=== PATIENT | female | born 1995 | race Caucasian/White ===

== ENCOUNTER 2019-01-07 12:30 | Observation (INO) | payer OTHER, MEDICAID ==
[~2019-01-07] VITALS: Ht 160 cm; Wt 96.6 kg
== END 2019-01-07 17:15 | disposition home or self-care (01) ==
LOC: INTOOBSV 12:30 → SPU 12:30
PROVIDERS: ADMIT Specialist; ATTEND Specialist
DX: O26.893 Other specified pregnancy related conditions, third trimester (principal); R10.30 Lower abdominal pain, unspecified; M54.9 Dorsalgia, unspecified; Z3A.39 39 weeks gestation of pregnancy
CPT/HCPCS: G0378

== ENCOUNTER 2019-01-09 15:00 | Inpatient (IN) | payer OTHER, MEDICAID ==
[~2019-01-09] VITALS: Ht 160 cm; Wt 97.1 kg
[2019-01-09] MEDS ORDERED: LR 1,000 ML IV ONE (15:37)
[2019-01-09] MEDS ORDERED: OXYTOCIN/0.9 % SODIUM CHLORIDE 1,000 ML IV SCH (15:37)
[2019-01-09] MEDS ORDERED: LR 1,000 ML IV SCH (15:37)
[2019-01-09] MEDS ORDERED: TERBUTALINE SULFATE 1 MG/ML VIAL SUBCUT ONE (15:45)
[2019-01-09 16:24] LABS: HEMATOCRIT 30.8 % (36-48); HEMOGLOBIN 10.2 g/dL (12.0-16.0); MEAN CORPUSCULAR HEMOGLOBIN 27 pg (27-31); MEAN CORPUSCULAR HGB CONC 33 % (32-36); MEAN CORPUSCULAR VOLUME 81 fL (79.0-98.0); PLATELET COUNT (AUTO) 280 K/uL (130-430); RED BLOOD CELL COUNT(AUTO) 3.81 MIL/uL (4.2-6.2); RED CELL DISTRIBUTION WIDTH 15.2 % (9.0-15.0); WHITE BLOOD COUNT (AUTO) 10.6 K/uL (4.8-10.8)
[2019-01-09 16:25] LABS: BASOPHILS # (AUTO) 0.1 K/uL (0.0-0.2); BASOPHILS % (AUTO) 0.5 % (0.0-2.0); EOSINOPHILS # (AUTO) 0.2 K/uL (0.0-0.4); EOSINOPHILS % (AUTO) 1.5 % (0.0-4.0); LYMPHOCYTES % (AUTO) 18.7 % (20.5-51.5); MONOCYTES # (AUTO) 0.8 K/uL (0.0-1.0); MONOCYTES % (AUTO) 7.4 % (1.7-9.3); NEUTROPHILS # (AUTO) 7.6 K/uL (1.8-7.7); NEUTROPHILS % (AUTO) 71.9 % (40.0-70.0)
[2019-01-09] MEDS ORDERED: OXYTOCIN/0.9 % SODIUM CHLORIDE 1,000 ML IV ONE (16:42)
[2019-01-09] MEDS: NALBUPHINE HCL 10 MG/ML AMP IVP PRN (21:04)
[2019-01-09 21:36] VITALS: BP_SYST 123
[2019-01-10] MEDS ORDERED: fentaNYL CITRATE/PF 100 MCG/2 ML AMP ONE ×4 (00:43→19:40)
[2019-01-10] MEDS ORDERED: ROPIVACAINE 0.2% 100 ML ONE ×3 (00:43→14:04)
[2019-01-10] MEDS ORDERED: LR 500 ML IV ONE (10:31)
[2019-01-10] MEDS ORDERED: FENT2mCg/mL-ROPIVA0.2%/NS EPID 100 ML EP SCH (10:45)
[2019-01-10] MEDS: NALBUPHINE HCL 10 MG/ML AMP IVP PRN (17:20)
[2019-01-10] MEDS ORDERED: LR 1,000 ML IV ONE (17:52)
[2019-01-10] MEDS ORDERED: CEFAZOLIN 2 GM IVPB PREMIX 50 ML IV ONE (18:00)
[2019-01-10] MEDS ORDERED: DIPHENHYDRAMINE INJ 50 MG/ML VIAL IVP PRN (19:15)
[2019-01-10] MEDS ORDERED: KETOROLAC TROMETHAMINE 60 MG/2 ML VIAL IM PRN (19:15)
[2019-01-10] MEDS ORDERED: fentaNYL CITRATE/PF 100 MCG/2 ML AMP IVP PRN ×2 (19:15)
[2019-01-10] MEDS ORDERED: NALBUPHINE HCL 10 MG/ML AMP IVP PRN (19:15)
[2019-01-10] MEDS ORDERED: ONDANSETRON HCL 4 MG/2 ML VIAL IVP PRN (19:15)
[2019-01-10] MEDS ORDERED: NALOXONE HCL 0.4 MG/ML AMP (NARCAN) IVP PRN ×2 (19:15)
[2019-01-10] MEDS ORDERED: MORPHINE SULFATE 10MG/10ML PF AMP EP SCH (19:15)
[2019-01-10 19:17] VITALS: BP_SYST 134
[2019-01-10] MEDS ORDERED: LR 1,000 ML IV SCH (19:22)
[2019-01-10] MEDS ORDERED: OXYTOCIN/0.9 % SODIUM CHLORIDE 1,000 ML IV ONE (19:22)
[2019-01-10] MEDS ORDERED: OXYCODONE/ACETAMINOPHEN 5-325 TABLET PO PRN (19:30)
[2019-01-10] MEDS ORDERED: BISACODYL 10 MG/SUPPOSITORY RC PRN (19:30)
[2019-01-10] MEDS ORDERED: MEASLES,MUMPS&RUBELLA VACC/PF 12500 UNIT/0.5 ML VIAL SUBQ PRN (19:30)
[2019-01-10] MEDS ORDERED: HYDROcodone/ACETAMIN 5-325 MG TAB (NORCO/ VICODIN) PO PRN (19:30)
[2019-01-10] MEDS ORDERED: LANOLIN 7 GM OINT. TP PRN (19:30)
[2019-01-10] MEDS ORDERED: SENNOSIDES/DOCUSATE SODIUM 1 TAB TABLET(SENOKOT-S) PO PRN (19:30)
[2019-01-10] MEDS ORDERED: RHO(D) IMMUNE GLOBULIN/MALTOSE 1500 UNITS/1.3 ML (WINHRO) IM PRN (19:30)
[2019-01-10] MEDS ORDERED: ANUSOL 1 EA SUPP.RECT (PREPARATION H) RC PRN (19:30)
[2019-01-10] MEDS ORDERED: TEMAZEPAM 15 MG CAPSULE PO PRN (21:00)
[2019-01-11] MEDS ORDERED: CEFAZOLIN 1 GM IVPB PREMIX 50 ML IV SCH
[2019-01-11 08:40] LABS: HEMATOCRIT 27.2 % (36-48); HEMOGLOBIN 8.9 g/dL (12.0-16.0); MEAN CORPUSCULAR HEMOGLOBIN 26 pg (27-31); MEAN CORPUSCULAR HGB CONC 33 % (32-36); MEAN CORPUSCULAR VOLUME 81 fL (79.0-98.0); PLATELET COUNT (AUTO) 231 K/uL (130-430); RED BLOOD CELL COUNT(AUTO) 3.38 MIL/uL (4.2-6.2); RED CELL DISTRIBUTION WIDTH 15.4 % (9.0-15.0)
[2019-01-11 08:41] LABS: BASOPHILS % (AUTO) 0.2 % (0.0-2.0); EOSINOPHILS # (AUTO) 0.1 K/uL (0.0-0.4); EOSINOPHILS % (AUTO) 0.6 % (0.0-4.0); LYMPHOCYTES # (AUTO) 1.8 K/uL (1.0-5.5); LYMPHOCYTES % (AUTO) 12.2 % (20.5-51.5); MONOCYTES # (AUTO) 0.9 K/uL (0.0-1.0); NEUTROPHILS # (AUTO) 12.3 K/uL (1.8-7.7)
[2019-01-11 08:42] LABS: WHITE BLOOD COUNT (AUTO) 15.2 K/uL (4.8-10.8)
[2019-01-11] MEDS: IBUPROFEN 600 MG TABLET PO SCH ×2 (10:55→12:40)
[2019-01-11] MEDS: SIMETHICONE 80 MG TAB.CHEW PO PRN (10:58)
[2019-01-11] MEDS: OXYCODONE/ACETAMINOPHEN 5-325 TABLET PO PRN ×2 (18:25→23:10)
[2019-01-11] MEDS: DOCUSATE SODIUM 100 MG CAPSULE PO PRN ×2 (18:27→23:10)
[2019-01-12] MEDS ORDERED: ACETAMINOPHEN 500 MG TABLET PO ONE ×2 (00:30→00:45)
[2019-01-12] MEDS ORDERED: ACETAMINOPHEN 500 MG TABLET ONE (00:31)
[2019-01-12] MEDS ORDERED: MIDAZOLAM HCL 5 MG/5 ML VIAL IVP ONE (00:50)
[2019-01-12] MEDS ORDERED: PROPOFOL 200MG/ 20ML VIAL (DIPRIVAN) IV ONE (00:50)
[2019-01-12] MEDS ORDERED: LR 1,000 ML IV.SOLN IV ONE (00:50)
[2019-01-12] MEDS: IBUPROFEN 600 MG TABLET PO SCH ×4 (05:35→18:05)
[2019-01-12] MEDS: DOCUSATE SODIUM 100 MG CAPSULE PO PRN (09:39)
[2019-01-12] MEDS: SIMETHICONE 80 MG TAB.CHEW PO PRN (09:40)
[2019-01-13] MEDS: SIMETHICONE 80 MG TAB.CHEW PO PRN ×2 (00:40→06:30)
[2019-01-13] MEDS: IBUPROFEN 600 MG TABLET PO SCH ×3 (00:40→12:17)
[2019-01-13] MEDS ORDERED: MORPHINE SULFATE 10MG/10ML PF AMP EP ONE (00:50)
[2019-01-13] MEDS ORDERED: fentaNYL CITRATE/PF 100 MCG/2 ML AMP IVP ONE (00:50)
== END 2019-01-13 13:05 | disposition home or self-care (01) | DRG 788 ==
LOC: SPU 15:00
PROVIDERS: ADMIT Specialist; ATTEND Specialist
PROC: 3E0R3BZ Introduction of Anesthetic Agent into Spinal Canal, Percutaneous Approach (ICD-10-PCS; 2019-01-10)
PROC: 10D00Z1 Extraction of Products of Conception, Low, Open Approach (ICD-10-PCS; principal; 2019-01-10 18:00)
DX: O33.9 Maternal care for disproportion, unspecified (principal); O62.2 Other uterine inertia; Z37.0 Single live birth; Z3A.39 39 weeks gestation of pregnancy
CPT/HCPCS: 36415; 85025; 86886; 86900; 86901; 94760; J0690; J2250; J2274; J2300; J2590; J2704; J2795; J3010; J7120